=== PATIENT | male | born 1995 | race Caucasian/White ===

== ENCOUNTER 2019-01-10 19:41 | Emergency (ER) | payer MEDICAID ==
[~2019-01-10] VITALS: Ht 174 cm; Wt 74.8 kg
[~2019-01-10 19:41] MED LIST: IBUP200C97 PO
[2019-01-10 19:44] VITALS: BP 111/60
--- NOTE | 2019-01-10 20:20 | NUR ---
pt wheelchaired to bed 12 at this time
--- NOTE | 2019-01-10 20:20 | NUR ---
PT PRESENTS TO ED WITH DIZZINESS AND LOSS OF CONCIOUSNESS X1 MIN, FIFTY MINIUTES PRIOR TO COMING TO ED. PT STATES OUT IN PUBLIC, STANDING IN LING, STARTED FEELING DIZZY THEN LOST COUNCIOUS NESS. REMEMBERS OPENING HIS EYES WHILE ON THE GROUND. GIRLFRIEND AT SIDE. NO PAST MEDICAL HX. STATES SMOKING MARIJUANA 3 HOURS AGO PRIOR TO EVENT. HR [id number]. STATES NOT DIZZINESS AT THIS TIME. POSITIONED IN BED WITH HOB ELEVATED. X2 SIDE RAILS UP. ER MD AWARE. CONTINUE TO MONITOR.
[2019-01-10 20:54] LABS: BASOPHILS # (AUTO) 0.1 K/uL (0.00-0.22); BASOPHILS % (AUTO) 0.5 % (0.0-2.0); EOSINOPHILS % (AUTO) 0.4 % (0.0-4.0); HEMATOCRIT 41.7 % (36-52); HEMOGLOBIN 13.9 g/dL (12.0-18.0); LYMPHOCYTES # (AUTO) 2.1 K/uL (2.0-11.5); MEAN CORPUSCULAR HEMOGLOBIN 29 pg (27-31); MEAN CORPUSCULAR HGB CONC 33 g/dL (33-37); MEAN CORPUSCULAR VOLUME 86.4 fL (80-94); MONOCYTES # (AUTO) 0.9 K/uL (0.8-1.0); MONOCYTES % (AUTO) 8.1 % (1.7-9.3); NEUTROPHILS # (AUTO) 7.8 K/uL (1.8-7.7); PLATELET COUNT (AUTO) 245 K/uL (140-450); RED BLOOD CELL COUNT(AUTO) 4.83 MIL/uL (4.20-6.10); RED CELL DISTRIBUTION WIDTH 13.5 % (11.6-13.7); WHITE BLOOD COUNT (AUTO) 10.8 K/uL (4.8-10.8)
[2019-01-10 21:30] LABS: ALBUMIN 4.1 g/dL (3.4-5.0); ANION GAP 13.4 (8-16); CARBON DIOXIDE 28.7 mmol/L (21-32); CREATININE 1.1 mg/dL (0.7-1.3); POTASSIUM 4.1 mmol/L (3.5-5.1); TOTAL BILIRUBIN 0.4 mg/dL (0.0-1.0)
[2019-01-10 21:33] LABS: PROTHROMBIN TIME 9.9 secs (10.8-13.4)
[2019-01-10 21:46] LABS: BARBITURATE, URINE NEGATIVE ng/ml (NEG <=200); BENZODIAZEPINE, URINE NEGATIVE ng/mL (NEG <=200); CANNABINOID, URINE POSITIVE ng/mL (NEG <=50); COCAINE, URINE NEGATIVE ng/mL (NEG <=300); OPIATE, URINE NEGATIVE ng/mL (NEG <=2000); PHENCYCLIDINE SCREEN,URINE NEGATIVE ng/mL (NEG <=25)
[2019-01-10 21:50] VITALS: BP 120/52
--- NOTE | 2019-01-10 21:50 | NUR ---
Patient discharged with v/s stable. Written and verbal after care instructions given and explained. Patient alert, oriented and verbalized understanding of instructions. Ambulatory with steady gait. All questions addressed prior to discharge. ID band removed. Patient advised to follow up with PMD. Opportunity to ask questions provided and answered.
== END 2019-01-10 21:50 | disposition home or self-care (01) ==
LOC: MED 19:41
DX: R55 Syncope and collapse (principal); Z79.899 Other long term (current) drug therapy
CPT/HCPCS: 36415; 71045; 80053; 80305; 85025; 85610; 93005; 99284

== ENCOUNTER 2023-05-23 05:10 | Emergency (ER) | payer MEDICAID ==
[~2023-05-23] VITALS: Ht 175.3 cm; Wt 86.2 kg
[2023-05-23 05:19] VITALS: BP 115/63; PULSE 58; RESP 20; TEMP 98; O2SAT 98
[2023-05-23] MEDS ORDERED: KETOROLAC 30 MG/ML VIAL IM ONE (05:50)
[2023-05-23] MEDS ORDERED: NAPR-54 PO (05:55)
[2023-05-23 06:18] VITALS: BP 115/63; PULSE 58; RESP 20; TEMP 98; O2SAT 98
== END 2023-05-23 06:18 | disposition home or self-care (01) ==
LOC: MED 05:10
DX: S93.502A Unspecified sprain of left great toe, initial encounter (principal); X58.XXXA Exposure to other specified factors, initial encounter; Y93.61 Activity, american tackle football; Y92.89 Other specified places as the place of occurrence of the external cause; Y99.8 Other external cause status
CPT/HCPCS: 73630; 96372; 99283; J1885; Q0092

== ENCOUNTER 2024-08-03 03:43 | Emergency (ER) | payer MEDICAID, OTHER ==
[~2024-08-03] VITALS: Ht 175.3 cm; Wt 79.4 kg
[~2024-08-03 03:43] MED LIST changes: +NAPR-337 PO
[2024-08-03 04:56] VITALS: BP 129/76; PULSE 50; RESP 16; TEMP 98.2; O2SAT 100
[2024-08-03] MEDS ORDERED: FLONAS NS (06:13)
[2024-08-03] MEDS ORDERED: MUC600 PO (06:13)
== END 2024-08-03 06:24 | disposition home or self-care (01) ==
LOC: MED 03:43
DX: J06.9 Acute upper respiratory infection, unspecified (principal); B97.89 Other viral agents as the cause of diseases classified elsewhere; H69.82 Other specified disorders of Eustachian tube, left ear; Z79.899 Other long term (current) drug therapy
CPT/HCPCS: 99282